=== PATIENT | female | born 2000 | race Asian ===

== ENCOUNTER 2019-01-22 14:45 | Emergency (ER) | payer OTHER ==
[2019-01-22] MEDS ORDERED: NS 0.9% 1000 ML** 1,000 ML IV.FLUID IV ONE (15:07)
--- NOTE | 2019-01-22 15:09 | ED ---
HPI Febrile Illness - HPI Summary HPI Summary: The pt is a 18 yr old female presenting to [facility] c/o febrile illness beginning 3 days [employer]IED [employer] TRA[employer] and CP beginning today. She states that she wakes up feeling very dehydrated and has difficulty getting out of bed without feeling very faint. She notes that her urine is very dark even if she tries to stay hydrated. She notes that at night she gets feverish and chills and that she currently has a fever. She took a plan B pill 1 week [employer] TRA[employer] and had her flu shot 4 days [employer]. She also has mid-sternal chest pain radiating to upper back. She rates her current pain severity a 5/10. No aggravating or alleviating factors noted. She also reports some loss of appetite, stiff neck, and nausea but denies any sore throat , headache, photophobia, or burning. She does not smoke, occasionally drinks, and does not use recreational drugs. She has Hx of hernia repair surgery and kidney infection. - History of Current Complaint Chief Complaint: EDChestPainROMI Time Seen by Provider: 01/22/19 14:59 Hx Obtained From: Patient Onset/Duration: Started Days Ago, Still Present Timing: Constant, Lasting Days Initial Severity: Moderate Current Severity: Moderate Pain Intensity: 5 Pain Scale Used: 0-10 Numeric Aggravating Factors: Nothing Alleviating Factors: Nothing Associated Signs and Symptoms: Negative - sore throat, headache, photophobia, burning, Nausea, Stiff Neck, Other: - pos - chills, loss of appetite, fever, chest pain - Allergy/Home Medications Allergies/Adverse Reactions: Allergies Allergy/AdvReac Type Severity Reaction Status Date / Time raw cherries Allergy Unknown Uncoded 01/22/19 14:53 Reaction Details PMH/Surg Hx/FS Hx/Imm Hx Sensory History: Denies: Hx Legally Blind, Hx Deafness Opthamlomology History: Denies: Hx Legally Blind EENT History: Denies: Hx Deafness - Surgical History Surgical History: None Surgery Procedure, Year, and Place: none Infectious Disease History: No Infectious Disease History: Denies: Traveled Outside the [place] in Last 30 Days - Family History Known Family History: Negative: Renal Disease - Social History Occupation: Student Alcohol Use: Occasionally Hx Substance Use: No Hx Tobacco Use: No Review of Systems Constitutional: Other - pos - loss of appetite Positive: Fever, Chills Negative: Photophobia Negative: Sore Throat Positive: Chest Pain Positive: Nausea Negative: burning Musculoskeletal: Other - pos - stiff neck Negative: Headache All Other Systems Reviewed And Are Negative: Yes Physical Exam - Summary Physical Exam Summary: VITAL SIGNS: Reviewed. GENERAL: Patient is a well-developed and nourished female who is lying comfortable in the stretcher. Patient is not in any acute respiratory distress. Pt is febrile. HEAD AND FACE: No signs of trauma. No ecchymosis, hematomas or skull depressions. No sinus tenderness. EYES: PERRLA, EOMI x 2, No injected conjunctiva, no nystagmus. EARS: Hearing grossly intact. Ear canals and tympanic membranes are within normal limits. MOUTH: Pharynx with some erythema. NECK: Supple, trachea is midline, no adenopathy, no JVD, no carotid bruit, no c- spine tenderness, neck with full ROM. CHEST: Symmetric, no tenderness at palpation. LUNGS: Clear to auscultation bilaterally. No wheezing or crackles. CVS: Tachycardic, S1 and S2 present, no murmurs or gallops appreciated. ABDOMEN: Soft, non-tender. No signs of distention. No rebound, no guarding, and no masses palpated. Bowel sounds are normal. EXTREMITIES: FROM in all major joints, no edema, no cyanosis or clubbing. NEURO: Alert and oriented x 3. No acute neurological deficits. Speech is normal and follows commands. SKIN: Dry and warm. Triage Information Reviewed: Yes Vital Signs On Initial Exam: Initial Vitals Temp Pulse Resp BP Pulse Ox 100.8 F 109 17 110/74 97 01/22/19 14:51 01/22/19 14:51 01/22/19 14:51 01/22/19 14:51 01/22/19 14:51 Vital Signs Reviewed: Yes Procedures - Sedation Patient Received Moderate/Deep Sedation with Procedure: No Diagnostics - Vital Signs Vital Signs Temp Pulse Resp BP Pulse Ox 01/22/19 14:51 100.8 F 109 17 110/74 97 - Laboratory Result Diagrams: 01/22/19 15:52 01/22/19 15:52 Lab Statement: Any lab studies that have been ordered have been reviewed, and results considered in the medical decision making process. - Radiology CXR Radiology Interpretation Completed By: Radiologist Summary of Radiographic Findings: IMPRESSION: NO EVIDENCE FOR ACTIVE CARDIOPULMONARY DISEASE. ED Physician has reviewed this report. Course/Dx - Course Assessment/Plan: Patient is a 18-year-old female who presents to the emergency department with chief complaint of having intermittent fever. She denies any headache, denies any neck pain, denies any photophobia and in the physical exam , the patient has no meningeal signs. She denies any cough, denies any abdominal pain, nausea, vomiting, or diarrhea. She denies any dysuria or urinary frequency. Blood test results without any significant abnormality except for slight normocytic normochromic anemia, glucose is 113, calcium is 8, CRP is 39.5, urinalysis is negative for UTI, influenza AMB is negative, and rapid strep is negative. Chest x-ray impression: No evidence for active cardiopulmonary disease. In the ED course the patient was given IV fluids, and Toradol for the fever. .The patient was observed for a couple hours and there is no or the findings. At this time the patient is hemodynamically stable and asymptomatic. At this time I believe that the patient has a viral infection. We sent blood cultures and follow with the primary care physician. She will be discharged home with follow-up with PCP. I discussed all the findings and test results with the patient. Patient was instructed to return to the emergency room immediately if any of the symptoms return worsens. Plan of care was discussed with the patient and understands and agrees. All questions were answered at patient satisfaction. There were no further complaints or concerns. Lung exam before discharge: CTA B/L. Good air exchange. No wheezing or crackles heard. CVS: S1 and S2 present. No murmurs appreciated. Patient is alert and oriented x 3. Patient is hemodynamically stable. Patient will be discharged home with follow up PCP in the next 2-3 days - Diagnoses Provider Diagnoses: Fever, Viral illness Discharge ED - Sign-Out/Discharge Documenting (check all that apply): Patient Departure - discharge - Discharge Plan Condition: Stable Disposition: HOME Patient Education Materials: Fever in Adults (ED), Viral Syndrome (ED) Referrals: [facility] - MRDaniele [Primary Care Provider] - 3 Days Additional Instructions: FOLLOW UP WITH YOUR PRIMARY CARE PROVIDER WITHIN 3 DAYS. RETURN TO THE ED FOR ANY WORSENING OR NEW SYMPTOMS. - Billing Disposition and Condition Condition: STABLE Disposition: Home - Attestation Statements Document Initiated by Scribe: Yes Documenting Scribe: Todd Parnell Provider For Whom Scribe is Documenting (Include Credential): Candido Olson MD Scribe Attestation: I, Todd Parnell, scribed for Candido Olson MD on 01/22/19 at 1832. Scribe Documentation Reviewed: Yes Provider Attestation: The documentation as recorded by the scribeTodd accurately reflects the service I personally performed and the decisions made by me, Candido Olson MD Status of Scribe Document: Viewed
[2019-01-22] MEDS ORDERED: Ketorolac INJ* 30 MG/ML 1 ML VIAL IV PUSH ONE (15:43)
[2019-01-22 16:01] LABS: ABS Lymphocytes 1.1 10^3/ul (1.0-4.8); ABS Monocytes 1.1 10^3/ul (0-0.8); ABS Neutrophils 7.5 10^3/ul (1.5-7.7); Hematocrit 34 % (35-47); Hemoglobin 11.5 g/dL (12.0-16.0); Lymphocyte % 11.5 %; Mean Corpuscular HGB Conc 34 g/dL (31-36); Mean Corpuscular Hemoglobin 31 pg (27-31); Mean Corpuscular Volume 91 fL (80-97); Mean Platelet Volume 6.9 fL (7.4-10.4); Platelet Count 195 10^3/uL (150-450); Red Cell Distribution Width 13 % (10-15); White Blood Count 9.7 10^3/uL (3.5-10.8)
[2019-01-22 16:01] LABS: Rapid Strep Molecular Negative (Negative)
[2019-01-22 16:11] LABS: Influenza A Molecular NEGATIVE (Negative); Influenza B Molecular NEGATIVE (Negative)
[2019-01-22 16:13] LABS: INR 1.32 (0.82-1.09)
[2019-01-22 16:18] LABS: ALT 7 U/L (7-52); AST 16 U/L (13-39); Albumin 3.8 g/dL (3.2-5.2); Albumin/Globulin Ratio 1.2 (1-3); Alkaline Phosphatase 41 U/L (34-104); Anion Gap 6 mmol/L (2-11); Blood Urea Nitrogen 12 mg/dL (6-24); C Reactive Protein 39.52 mg/L (<8.01); CO2 Carbon Dioxide 25 mmol/L (22-32); Chloride 103 mmol/L (101-111); EGFR African American 119.2 (>60); EGFR Non-African American 98.5 (>60); Globulin 3.1 g/dL (2-4); Glucose 113 mg/dL (70-100); Potassium 3.8 mmol/L (3.5-5.0); Sodium 134 mmol/L (135-145); Total Protein 6.9 g/dL (6.4-8.9)
[2019-01-22 16:25] LABS: HCG Pregnancy < 0.60 mIU/mL
[2019-01-22 16:55] LABS: HIV 4th Generation Nonreactive (Nonreactive)
[2019-01-22 17:21] LABS: Urine Appearance Clear; Urine Bacteria Absent (Absent); Urine Bilirubin Negative (Negative); Urine Blood 1+ (Negative); Urine Color Yellow; Urine Glucose Negative (Negative); Urine Ketones Trace (Negative); Urine Nitrite Negative (Negative); Urine Protein Negative (Negative); Urine Red Blood Cell Trace(0-2/hpf) (Absent); Urine Specific Gravity 1.009 (1.010-1.030); Urine Squamous Epithelial Cell Present (Absent); Urine Urobilinogen Negative (Negative); Urine White Blood Cell Trace(0-5/hpf) (Absent)
[2019-01-22 18:23] VITALS: BP 104/67
== END 2019-01-22 18:06 | disposition home or self-care (01) ==
LOC: ED 14:45
DX: B34.9 Viral infection, unspecified (principal)
CPT/HCPCS: 36415; 71046; 80053; 81003; 81015; 83605; 84484; 84702; 85025; 85610; 86140; 87040; 87086; 87389; 87651; 93005; 96361; 96374; 99283; J1885